=== PATIENT | female | born 1950 | race Caucasian/White ===

== ENCOUNTER 2017-04-02 04:55 | Emergency (ER) | payer MEDICAID ==
[~2017-04-02] VITALS: Ht 170.2 cm; Wt 137.8 kg
[~2017-04-02 04:55] MED LIST: CIPR-212 PO; IBUP-1547 PO; METR500T PO; ONDA4TAB7 PO; OXYC1TAB8 PO; VITAMIN POWDER PO
[2017-04-02 05:00] VITALS: Ht 170.2 cm; Wt 137.8 kg
[2017-04-02] MEDS ORDERED: KETOROLAC 30mg/ml INJECTION IV ONE (05:00)
[2017-04-02] MEDS ORDERED: NORMAL SALINE 1,000 ML IV ONE (05:00)
[2017-04-02] MEDS ORDERED: METOCLOPRAMIDE 10mg/2ml INJECTION IV ONE (05:00)
[2017-04-02] MEDS ORDERED: MORPHINE SULFATE 4 MG SYRINGE IV ONE (05:00)
--- OUTSIDE RECORDS SUMMARY | 2017-04-02 05:00 | XMS REPORT ---
Author Fabiola Freeman [facility] eClinicalWorks Address Unknown Phone Unavailable Care Team Providers Care Equipment Mechanic Specialist Name Role Phone Fabiola Ortega CP Unavailable Allergies No Known Allergies Problems No Known Problems Medications No Known Medications Results No Known Results Summary Purpose eClinicalWorks Submission
--- OUTSIDE RECORDS SUMMARY | 2017-04-02 05:00 | XMS REPORT ---
Author Fabiola Freeman [facility] eClinicalWorks Address Unknown Phone Unavailable Care Team Providers Care Engine House Helper Name Role Phone Fabiola Ortega CP Unavailable Allergies No Known Allergies Problems No Known Problems Medications No Known Medications Results No Known Results Summary Purpose eClinicalWorks Submission
--- OUTSIDE RECORDS SUMMARY | 2017-04-02 05:00 | XMS REPORT | Continuity of Care Document ---
Author Author [facility] Organization [facility] Address Unknown Phone Unavailable Allergies Active Description Code Type Severity Reaction Onset Reported/Identified Relationship to Patient Clinical Status Yes Latex Drug Allergy Eczema (rash) 12/10/2011 Yes Penicillins Drug Allergy Adverse Reaction 12/10/2011 Yes Toradol Drug Allergy Adverse Reaction 12/10/2011 Yes No Known Food Allergies Food Allergy 12/19/2011 Medications Problems Procedures Results Encounters ACCT No. Visit Date/Time Discharge Status Pt. Type Provider Facility Loc./Unit Complaint [id number] 02/16/2013 11:39:00 2012 23:59:59 CLS Outpatient Wade Flores DO [facility] on [facility]
--- OUTSIDE RECORDS SUMMARY | 2017-04-02 05:00 | XMS REPORT ---
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
--- NOTE | 2017-04-02 05:10 | NUR ---
bathroom. pt is brought back to rm 2. pt reports she needs to urinate. pt assisted with w/c to bathroom. pt uses 2 canes to slowly transfer. ua collected and sent to lab
--- OUTSIDE RECORDS SUMMARY | 2017-04-02 05:12 | XMS REPORT | Continuity of Care Document ---
Author Author [facility] Organization [facility] Address Unknown Phone Unavailable Allergies Active Description [...] Status Pt. Type Provider Facility Loc./Unit Complaint [id number] 02/16/2013 11:39:00 2012 23:59:59 CLS Outpatient Wade Flores DO [facility] on [facility]
--- NOTE | 2017-04-02 05:20 | NUR ---
provider dr hsu in room to see pt
--- NOTE | 2017-04-02 05:28 | ERPDOC ---
Departure Disposition Decision Date: April 02, 2017 Disposition Decision Time: 07:44 () Disposition: 01 DISCHARGED HOME, SELF-CARE Impression Impression (DASIA NGO MD) Impression: Primary Impression: Ureterolithiasis Severity: Severe () Condition: Improved Seen By: Physician only () Referrals: TOÑO HUA MD (Family) 1 Week Patient Instructions: Kidney Stones (ED) Problems/Meds/Labs Reviewed?: Yes Medications reviewed and manag: Yes () Additional Instructions: You may have passed a kidney stone. Drink lots of water and use naproxen or ibuprofen to help with your pain. Follow up with your doctor in the next week to ensure that you have passed the stone. Follow up care ordered?: Yes Mental Status: Alert, Oriented () HPI - Abdominal Pain General Stated Complaint: POSS KIDNEY STONES Time Seen by Provider: 05:00 Source: patient, family History/Exam Limitations: no limitations (DASIA NGO MD) Time Seen by Provider: 06:06 () HPI - Abdominal Pain Initial Comments Patient presents with 24 hours of right lower quadrant abdominal pain with radiation into the right flank. These the same symptoms that the patient has been seen for multiple times in the past, and she believes that she has another kidney stone. When asked, patient admits she has not had a known kidney stone for over 37 years, and has had the same symptoms with diverticulitis at least 4 times. Patient has not taken any medications for this, because she did not want mask her symptoms, and she wanted us to see just how sick she really is this morning Occurred At: home Onset: Rapid Duration: 12-24 hrs Quality: sharpness, stabbing Location: RLQ Radiation: flank Associated Symptoms: nausea/vomiting, DENIES: back pain, chest pain, diaphoresis, fatigue, headache, heartburn, rash, shortness of breath, swelling/ mass in abdomen, syncope, weakness Hx of Similar Symptoms: Yes (DASIA NGO MD) Allergies: Coded Allergies: Penicillins (Verified Allergy, Unknown, RASH/SWELLING, 04/02/17) ketorolac tromethamine (Unverified Adverse Reaction, Unknown, RENAL FAILURE, 04/02/17) ABLE TO TAKE IBUPROFEN latex (Unverified Adverse Reaction, Unknown, RASH, 04/02/17) Past History Patient Medical History Problem List Updates: Diverticulitis (DASIA NGO MD) Past Medical History Metabolic: cancer, hypertension GI: other Female: UTI, kidney stones (DASIA NGO MD) Surgical History General: appendix, gallbladder, hernia, other (DASIA NGO MD) Family History Family PMH: FOUND: CAD, cancer (DASIA NGO MD) Vaccines Hx Influenza Vaccination: No (DASIA NGO MD) Review of Systems Constitutional Constitutional: DENIES: appetite decrease, appetite increase, chills, dizziness , fever, weakness (DASIA NGO MD) ENMT Ears: DENIES: pain Hearing: DENIES: hearing loss, tinnitus Balance: DENIES: vertigo Mouth/Throat: DENIES: change in swallowing, change in voice, hoarsness, painful swallowing, sore throat (DASIA NGO MD) Cardiovascular Cardiac: DENIES: chest pain, dyspnea on exertion Rhythm/Rate: DENIES: irregular beat, palpitations, tachycardia Vascular: DENIES: pedal edema (DASIA NGO MD) Pulmonary Respiratory: DENIES: cough, dyspnea, pleuritic chest pain (DASIA NGO MD) GI Upper Abdomen: nausea, pain, DENIES: dysphagia, food intolerances, heartburn/ indigestion, hematemesis, vomiting Lower Abdomen: DENIES: blood in stool, flori-colored stools, constipation, diarrhea, melena, pain, painful BM (DASIA NGO MD) General: DENIES: burning, dysuria, frequency, pain, urgency (DASIA NGO MD) Musculoskeletal General: DENIES: cramps, joint pain, joint swelling, pain, weakness (DASIA NGO MD) Integumentary Skin: DENIES: rash, sores (DASIA NGO MD) Neurological General: DENIES: headache, numbness, tingling, vertigo, weakness (DASIA NGO MD) Psychiatric Psychiatric: DENIES: anxiety, depression, nervousness (DASIA NGO MD) Physical Exam General General Nourishment: well nourished, well developed, appears stated age, obese General Body Habitus: well groomed (DASIA NGO MD) Vitals and Pain First Documented Vital Signs Date Time Temp Pulse Resp B/P Pulse Ox O2 Delivery O2 Flow Rate FiO2 04/02/17 05:00 97.7 75 20 156/97 98 Room Air 04/02/17 06:00 2.00 (MARCH,JACOB M DO) Vitals and Pain Weight: Kilograms: Height (feet): 5 Height (inches): 6 Triage Pain Scale: (DASIA NGO MD) RN VS reviewed by Provider: Yes (DASIA NGO MD) Normal Exams: Head: Normocephalic w/o trauma Eyes: Pupils are PERRLA w/ EOMI, No scleral icterus, irritation, or foreign bodies noted ENMT: No facial trauma, nasal exudates, pharyngeal erythema, or exudates are noted Neck: Full range of motion, without adenopathy, JVD, bruits or thyromegaly Chest/Resp: Clear all baker, with good airflow, and symmetry bilaterally CV: Regular rate and rhythm, without murmur or gallop, Pulses 2+ all extremities, capillary refill, <2 seconds all ext., no pedal edema noted Lymphatic: No lymphadenopathy, or lymphedema noted Musculoskeletal: No tenderness, or deformity noted, good range of motion, all extremities Integumentary: No rashes, hives, or bruising noted, hair and nails, without abnormality Neurologic: Patient is alert, and oriented, cranial nerves, motor/sensory/ cerebellar, exams w/o gross deficits, to observation Psychiatric: Patient exhibits, appropriate attention, emotion and affect (DASIA NGO MD) Abdomen (brief) Abdominal Brief: FOUND: bowel normo active x4, soft, tender (right lower quadrant abdominal pain with guarding, rebounding, and mild referred tenderness to the right flank), NOT FOUND: distended, hepatosplenomegaly (DASIA NGO MD ) Progress Results/Orders Orders Procedure Category Date Status Time Iv Lock (Ed Only) EDM 04/02/17 Transmitted 05:00 Cbc W/Auto LAB 04/02/17 Complete Diff-Reflex Manual Cmp - Comprehensive LAB 04/02/17 Complete Metabolic Lipase LAB 04/02/17 Complete Metoclopramide PHA 04/02/17 Complete (Reglan Inj) 05:00 Morphine Sulfate PHA 04/02/17 Complete (Morphine) 05:00 Normal Saline (Normal PHA 04/02/17 Complete Saline Iv) 05:00 Ct Abd/Pelvis CT 04/02/17 Resulted W/Contrast Only UA, LAB 04/02/17 Complete Dip&Micro(Complete) & 05:19 Iohexol (Omnipaque) PHA 04/02/17 Complete 06:25 Normal Saline (Ns) PHA 04/02/17 Complete 06:25 Saline Flush (Iv PHA 04/02/17 Complete Flush) 06:25 Ibuprofen (Motrin) PHA 04/02/17 Complete 06:45 Dicyclomine Inj PHA 04/02/17 Complete (Bentyl) 06:45 Urine Culture DENNY 04/02/17 In Process 06:44 (MARCH,[facility]) Lab Results Laboratory Tests Test 04/02/17 05:19 04/02/17 05:53 Urine Collection Type Cleancatch-midstream Urine Color Yellow Urine Turbidity Cloudy Urine pH 5.5 Urine Specific Spring 1.020 Urine Protein 2+ Urine Glucose (UA) Negative Urine Ketones Negative Urine Blood 3+ Urine Nitrite Positive Urine Bilirubin Negative Urine Urobilinogen 0.2EU/DL Urine Leukocyte Esterase 3+ Urine RBC 1-3/HPF Urine WBC Tntc/HPF Urine WBC Clumps Few Urine Squamous Epithelial Cells 0-5 Urine Bacteria 1+ Urine Mucus Present Urine Culture Indicated Cult reflexed &setup White Blood Count 10.0T/MM3 Red Blood Count 5.26M/MM3 Hemoglobin 13.9GM/DL Hematocrit 44.9% Mean Corpuscular Volume 85.4UM3 Mean Corpuscular Hemoglobin 26.4UUG Mean Corpuscular Hemoglobin Concent 31.0GM/DL RDW Standard Deviation 49.3FL Platelet Count 254T/MM3 Mean Platelet Volume 9.9UM3 Immature Granulocyte % (Auto) 0.2% Neutrophils (%) (Auto) 64.6% Lymphocytes (%) (Auto) 23.2% Monocytes (%) (Auto) 8.9% Eosinophils (%) (Auto) 2.6% Basophils (%) (Auto) 0.5% Absolute Immature Granulocyte (auto 0.02T/MM3 Absolute Neutrophils (auto) 6.5T/MM3 Absolute Lymphocytes (auto) 2.3T/MM3 Absolute Monocytes (auto) 0.9T/MM3 Absolute Eosinophils (auto) 0.3T/MM3 Absolute Basophils (auto) 0.1T/MM3 Turbidity < 20 Sodium Level 143MEQ/L Potassium Level 4.0MEQ/L Chloride Level 105MEQ/L Carbon Dioxide Level 25MEQ/L Anion Gap 13MEQ/L Blood Urea Nitrogen 27.0MG/DL Creatinine 0.9MG/DL Glomerular Filtration Rate Calc 62 BUN/Creatinine Ratio 30RATIO Glucose Level 113MG/DL Calculated Osmolality 281MOSM/KG Calcium Level 9.8MG/DL Total Bilirubin 0.60MG/DL Icterus Index < 2 Aspartate Amino Transf (AST/SGOT) 22U/L Alanine Aminotransferase (ALT/SGPT) 45U/L Alkaline Phosphatase 104U/L Total Protein 7.7G/DL Albumin 4.4G/DL Globulin 3.3G/DL Albumin/Globulin Ratio 1.3RATIO Lipase 175U/L Chemistry Specimen Hemolysis < 15 ( DO) Medications Current ED Medications Ketorolac Tromethamine (Toradol) 30 mg O ONCE IV ; Start 04/02/17 at 05:00; Stop 04/02/17 at 05:01; Status Cancel Metoclopramide HCl (REGLAN Inj) 10 mg O ONCE IV Last administered on 05:43; Start 04/02/17 at 05:00; Stop 04/02/17 at 05:23; Status DC Morphine Sulfate 4 mg 4 mg O ONCE IV Last administered on 04/02/17 05:47; Start 04/02/17 at 05:00; Stop 04/02/17 at 05:23; Status DC Sodium Chloride (Normal Saline IV) 1,000 ml @ 0 mls/hr Q0M ONCE IV Last administered on 04/02/17 05:42; Start 04/02/17 at 05:00; Stop 04/02/17 at 05:23 ; Status DC Iohexol 1 bottle 1 bottle STK-MED ONCE .ROUTE ; Start 04/02/17 at 06:25; Stop at 06:26; Status DC Sodium Chloride (NS) 100 ml @ As Directed STK-MED ONCE .ROUTE ; Start 04/02/17 at 06:25; Stop 04/02/17 at 06:26; Status DC Sodium Chloride (Iv Flush) 10 ml STK-MED ONCE .ROUTE ; Start 04/02/17 at 06:25; Stop 04/02/17 at 06:26; Status DC Ibuprofen (Motrin) 800 mg O ONCE PO ; Start 04/02/17 at 06:45; Stop 04/02/17 at 06:46; Status DC Dicyclomine HCl (Bentyl) 10 mg O ONCE IM Last administered on 04/02/17t 07:23 ; Start 04/02/17 at 06:45; Stop 04/02/17 at 06:46; Status DC (MARCH,JACOB Wick DO) Progress Progress Patient given Toradol, Reglan, and morphine with 1 L normal saline IV fluid bolus - Lab and CT abdomen pelvis pending - (DASIA NGO MD) Progress Pt vomited just prior to abd/pelv CT. Pain has been tolerable since. Possible recently passed stone per Rad read. Discussed dx, prognosis, tx, and need for f/ u with Pt. Pt voiced understanding. (MARCH,JACOB Wick ) CT CT : CT: Abd/Pelvis IV contrast Interpretation: Abnormal (1. Mild distension of right collecting system; no stone. 2. Distended endometrial canal - unchanged from prior.) (MARCH,JACOB Wick DO) DASIA NGO MD April 02, 2017 05:28 MARCHJACOB DO April 02, 2017 07:45 MARCHJACOB DO April 02, 2017 07:45
--- NOTE | 2017-04-02 06:03 | NUR ---
REPORT REPORT RECEIVED FROM LISE DELONG AT THIS TIME.
[2017-04-02 06:05] LABS: BASOPHILS # (AUTO) 0.1 T/MM3 (0-0.2); BASOPHILS % (AUTO) 0.5 % (0-2); EOSINOPHILS # (AUTO) 0.3 T/MM3 (0-0.5); EOSINOPHILS % (AUTO) 2.6 % (0-4); HCT - HEMATOCRIT 44.9 % (36-46); HGB - HEMOGLOBIN 13.9 GM/DL (12-16); IMMATURE GRANULOCYTE # (AUTO) 0.02 T/MM3 (0.00-0.03); IMMATURE GRANULOCYTE % (AUTO) 0.2 % (0.0-0.5); LYMPHOCYTES # (AUTO) 2.3 T/MM3 (1-4.8); LYMPHOCYTES % (AUTO) 23.2 % (23-45); MEAN CORPUSCULAR HGB 26.4 UUG (26-34); MEAN CORPUSCULAR VOLUME 85.4 UM3 (80-100); MEAN PLATELET VOLUME 9.9 UM3 (9.4-12.4); MONOCYTES # (AUTO) 0.9 T/MM3 (0-0.8); MONOCYTES % (AUTO) 8.9 % (0-9.0); NEUTROPHILS #(AUTO)-ABSOLUTE 6.5 T/MM3 (1.8-7.7); NEUTROPHILS % (AUTO) 64.6 % (33-66); RED BLOOD COUNT 5.26 M/MM3 (4.00-5.20)
[2017-04-02 06:15] LABS: ALBUMIN 4.4 G/DL (3.5-5.0); ALBUMIN/GLOBULIN RATIO 1.3 RATIO (1.1-2.2); ALKALINE PHOSPHATASE 104 U/L (38-126); ALT (SGPT) 45 U/L (9-52); ANION GAP 13 MEQ/L (5-15); AST (SGOT) 22 U/L (14-36); BUN/CREATININE RATIO 30 RATIO (6-26); CALCIUM 9.8 MG/DL (8.4-10.2); CHLORIDE 105 MEQ/L (98-107); CO2 - CARBON DIOXIDE 25 MEQ/L (22-30); CREATININE 0.9 MG/DL (0.7-1.2); GLOMERULAR FILTRATION RATE 62; GLUCOSE 113 MG/DL (65-110); LIPASE 175 U/L (23-300); SODIUM 143 MEQ/L (134-144); TOTAL PROTEIN 7.7 G/DL (6.3-8.2)
[2017-04-02 06:18] LABS: BLOOD, URINE 3+ (NEGATIVE); COLOR,URINE YELLOW (YELLOW); LEUKOCYTE ESTERASE ,URINE 3+ (NEGATIVE); NITRITE,URINE POSITIVE (NEGATIVE); UROBILINOGEN,URINE 0.2 EU/DL (NORMAL)
[2017-04-02] MEDS ORDERED: SALINE FLUSH 10ml SYRINGE ONE (06:25)
[2017-04-02] MEDS ORDERED: NORMAL SALINE 100 ML ONE (06:25)
[2017-04-02] MEDS ORDERED: IOHEXOL 300 MG/ML 100ml INJECTION ONE (06:25)
--- NOTE | 2017-04-02 06:30 | NUR ---
IMAGING PT TO IMAGING AT THIS TIME. Addendum: 04/02/17 at 0725 by [email or web address] PT TO IMAGING AT LATER TIME - [id number]
[2017-04-02 06:36] LABS: SQUAMOUS EPITHELIAL CELL,UR 0-5; WBC CLUMPS,URINE FEW; WBC,URINE TNTC /HPF (0-5)
[2017-04-02 06:40] LABS: BACTERIA,URINE 1+ (NEGATIVE)
--- NOTE | 2017-04-02 06:40 | NUR ---
IMAGING PT TO IMAGING VIA WHEEL CHAIR AT THIS TIME.
[2017-04-02 06:44] LABS: MUCUS,URINE PRESENT
[2017-04-02] MEDS ORDERED: DICYCLOMINE IM ONE (06:45)
[2017-04-02] MEDS ORDERED: IBUPROFEN 800 MG TABLET PO ONE (06:45)
--- NOTE | 2017-04-02 06:58 | NUR ---
IMAGING PT RETURN FROM IMAGING VIA WHEEL CHAIR AT THIS TIME.
--- NOTE | 2017-04-02 06:58 | NUR ---
WHEEL CHAIR PT WOULD LIKE TO REMAIN IN WHEEL CHAIR AT THIS TIME - STATING COMFORT REASONS.
[2017-04-02] MEDS ORDERED: NO ROUTINE MEDS (07:07)
--- NOTE | 2017-04-02 07:54 | DI ---
Indication: ITS.REASON: RLQ pain PROCEDURE: CT ABD/PELVIS W/CONTRAST ONLY: Encounter: Initial Comparison: 07/24/2015 Technique: Axial CT images were performed through the abdomen and pelvis after the administration of intravenous contrast. Coronal and sagittal two-dimensional reformats. Automated Exposure Control and Iterative Reconstruction dose reducing techniques were utilized. Contrast: Omnipaque 300 100 mL Findings: The lung bases are clear. The liver is grossly normal. Gallbladder is surgically absent. The spleen, pancreas and adrenal glands are within normal limits. Left kidney appears normal. Right kidney shows inflammatory change in the region of the extrarenal pelvis with urothelial thickening, new from the prior study. No obvious stone disease. Bladder is normal. Fluid in the endometrial canal, similar to the prior study. No free fluid. Sigmoid diverticulosis without evidence of acute diverticulitis. Prior right hemicolectomy. No evidence of a small bowel obstruction. Rectus diastases. Bone windows show degenerative change and scoliosis in the spine. Impression: Right-sided urothelial thickening and inflammation could be due to infection or recently passed stone. There is a preliminary report by [employer] radiologic. .
[2017-04-02 07:57] VITALS: BP 148/82; PULSE 86; RESP 20; TEMP 97.7; O2SAT 97
--- NOTE | 2017-04-02 07:57 | NUR ---
DEPART PT GIVEN DI FOR KIDNEY STONES AND F/U. PT VERBALIZES UNDERSTANDING OF DI. QUESTIONS ASKED/ANSWERED - DENIES FURTHER QUESTIONS/NEEDS AT THIS TIME. IV SITE REMOVED. PERSONAL BELONGINGS GATHERED. PT ESCORTED TO ED EXIT VIA WHEEL CHAIR WHERE SPOUSE MET WITH PRIVATE VEHICLE. NO SIGN OF DISTRESS AT THIS TIME.
== END 2017-04-02 07:57 | disposition home or self-care (01) ==
LOC: ED 04:55
DX: N20.1 Calculus of ureter (principal); Z87.442 Personal history of urinary calculi
CPT/HCPCS: 74177; 80053; 81001; 83690; 85025; 87086; 96361; 96372; 96374; 96375; 99284; J0500; J2765; J7030; J7050; Q9967; 87088

== ENCOUNTER 2017-04-06 20:30 | Emergency (ER) | payer MEDICAID ==
[~2017-04-06] VITALS: Ht 170.2 cm; Wt 137.7 kg
[~2017-04-06 20:30] MED LIST changes: -CIPR-212 PO; -METR500T PO; +NO ROUTINE MEDS; -ONDA4TAB7 PO; -OXYC1TAB8 PO
--- OUTSIDE RECORDS SUMMARY | 2017-04-06 20:35 | XMS REPORT | Continuity of Care Document ---
Author Author [facility] Organization [facility] Address Unknown Phone Unavailable Allergies Active [...] Status Pt. Type Provider Facility Loc./Unit Complaint [id number] 02/16/2013 11:39:00 2012 23:59:59 CLS Outpatient Wade Flores DO [facility] on [facility]
--- OUTSIDE RECORDS SUMMARY | 2017-04-06 20:35 | XMS REPORT | Continuity of Care Document ---
Author Author [facility] Organization [facility] Address Unknown Phone Unavailable Support Name Relationship Address Phone MARCH, JACOB Wick DO Caregiver [address] [place] [address] Unavailable TOÑO HUA MD Caregiver [address] [place] [address] Unavailable CHRISTIANO [place] [address] Insurance Providers Guarantor Gina Lester Address [address] [place] [address] Email [email or web address] [email or web address] Community Plan Policy Number [id number] Subscriber's Name Gina Lester Relationship 18 Self Effective Date 17 Expiration Date 17 Chief Complaint and Reason for Visit Chief Complaint Flank Pain Reason for Visit [id number] Problems Active Problems Medical Problem Onset Date Status Diverticulitis Unknown Acute Diverticulitis Unknown Acute Past Problems Medical Problem Onset Date Ureterolithiasis Unknown Medications Current Home Medications Medication Dose Units Route Directions Days Qty Instructions Start Date Ibuprofen 800 Mg Tablet 1 Tab Oral Three Times A Day as needed for Pain 07/24/15 No Routine Meds 04/02/17 Vitamin Powder 1 Packet Oral Daily 03/01/16 Past Home Medications Medication Directions Ordered Status "A Few Other Herbs" , 02/05/10 Discontinued Cayenne Pepper , 02/05/10 Discontinued Oxycodone Hcl/Acetaminophen (Percocet 5-325 Mg Tablet) 1 Each Tablet, 1-2 Tab Oral Every 6 Hours as needed for Pain 03/01/16 Discontinued Oxycodone Hcl/Acetaminophen (Percocet 7.5/325 Mg) 1 Udtab Tablet, 1 Udtab Oral As Needed 01/02/12 Discontinued Social History Social History Problem Response Recorded Date/Time Onset Date Status Hx Alcohol Use No 04/02/2017 7:02am Not Applicable Not Applicable Tobacco Usage none 04/27/2015 12:29pm Not Applicable Not Applicable Query Response Start Date Stop Date Smoking Status Never smoker Hospital Discharge Instructions No hospital discharge instructions. Plan of Care Discharge Date 04/02/17 7:57am Disposition 01 DISCHARGED HOME, SELF-CARE Condition at Discharge Improved Instructions/Education Provided Kidney Stones (ED) Prescriptions See Medication Section Referrals TOÑO HUA MD Order Date: 1 Week Address: [address] [place] [id number] Note: Additional Instructions/Education You may have passed a kidney stone. Drink lots of water and use naproxen or ibuprofen to help with your pain. Follow up with your doctor in the next week to ensure that you have passed the stone. Care Plan and Goals Physician Care Plan Problem: Ureterolithiasis Goal: Follow up with primary care provider Instructions: Take medications and follow care plan as discussed/written Functional Status No functional status results. Allergies, Adverse Reactions, Alerts Allergen Type Severity Reaction Status Last Updated ketorolac tromethamine Adverse Reaction Unknown RENAL FAILURE Active 04/02 Penicillin Allergy Unknown RASH/SWELLING Active 04/02/17 Latex Adverse Reaction Unknown RASH Active 04/02/17 Immunizations Query Response on File Recorded Date/Time Hx Influenza Vaccination No 07/24/15 3:05pm Hx Influenza Vaccination No 07/24/15 3:05pm Influenza Vaccine Hx NONE 04/02/17 7:02am Vital Signs Acute Vital Signs Vital Response Date/Time Temperature (Fahrenheit) 97.7 deg F (96.8 - 99.1) 04/02/2017 7:57am Temperature (Calculated Celsius) 36.73322 degrees C (36.0 - 37.3) 04/02/2017 7:57am Pulse Rate (adult) 86 bpm (60 - 100) 04/02/2017 7:57am Respiratory Rate 20 breaths/min (10 - 20) 04/02/2017 7:57am O2 Sat by Pulse Oximetry 97 % (90 - 100) 04/02/2017 7:57am Oxygen Flow Rate 2.00 L/min 04/02/2017 7:57am Blood Pressure 148/82 mm Hg 04/02/2017 7:57am Height (Feet) 5 feet 04/02/2017 5:00am Height (Inches) 7.00 inches 04/02/2017 5:00am Weight (Kilograms) 137.800 kg 04/02/2017 5:00am Body Mass Index (BMI) 47.0 04/02/2017 5:00am Results Laboratory Results Test Name Result Units Flags Reference Collection Date/Time Result Date/ Time Comments White Blood Count 10.0 T/MM3 4.5-11.0 04/02/2017 5:53am 04/02/2017 6: 05am Red Blood Count 5.26 M/MM3 H 4.00-5.20 04/02/2017 5:53am 04/02/2017 6: 05am Hemoglobin 13.9 GM/DL 12-16 04/02/2017 5:53am 04/02/2017 6:05am Hematocrit 44.9 % 36-46 04/02/2017 5:53am 04/02/2017 6:05am Mean Corpuscular Volume 85.4 UM3 80-100 04/02/2017 5:53am 04/02/2017 6: 05am Mean Corpuscular Hemoglobin 26.4 UUG 26-34 04/02/2017 5:532016 6:05am Mean Corpuscular Hemoglobin Concent 31.0 GM/DL 31-37 04/02/2017 5:53am 04/02/2017 6:05am RDW Standard Deviation 49.3 FL 36.9-50.2 04/02/2017 5:53am 04/02/2017 6 :05am Platelet Count 254 T/MM3 130-400 04/02/2017 5:53am 04/02/2017 6:05am Mean Platelet Volume 9.9 UM3 9.4-12.4 04/02/2017 5:5304/02/2017 6: 05am Neutrophils (%) (Auto) 64.6 % 33-66 04/02/2017 5:53am 04/02/2017 6: 05am Lymphocytes (%) (Auto) 23.2 % 23-45 04/02/2017 5:53am 04/02/2017 6: 05am Monocytes (%) (Auto) 8.9 % 0-9.0 04/02/2017 5:53am 04/02/2017 6:05am Eosinophils (%) (Auto) 2.6 % 0-4 04/02/2017 5:53am 04/02/2017 6:05am Basophils (%) (Auto) 0.5 % 0-2 04/02/2017 5:5304/02/2017 6:05am Immature Granulocyte % (Auto) 0.2 % 0.0-0.5 04/02/2017 5:532016 6:05am Absolute Neutrophils (auto) 6.5 T/MM3 1.8-7.7 04/02/2017 5:532016 6:05am Absolute Lymphocytes (auto) 2.3 T/MM3 1-4.8 04/02/2017 5:532016 6:05am Absolute Monocytes (auto) 0.9 T/MM3 H 0-0.8 04/02/2017 5:532016 6:05am Absolute Eosinophils (auto) 0.3 T/MM3 0-0.5 04/02/2017 5:532016 6:05am Absolute Basophils (auto) 0.1 T/MM3 0-0.2 04/02/2017 5:5304/02/2017 6:05am Absolute Immature Granulocyte (auto 0.02 T/MM3 0.00-0.03 04/02/2017 5: 5304/02/2017 6:05am Icterus Index < 2 0-7 04/02/2017 5:5304/02/2017 6:15am Chemistry Specimen Hemolysis < 15 0-25 04/02/2017 5:5304/02/2017 6 :15am 0-25: Specimen Exhibited No Hemolysis. Turbidity < 20 0-20 04/02/2017 5:5304/02/2017 6:15am Sodium Level 143 MEQ/L 134-144 04/02/2017 5:5304/02/2017 6:15am Potassium Level 4.0 MEQ/L 3.6-5 04/02/2017 5:5304/02/2017 6:15am Chloride Level 105 MEQ/L 98-107 04/02/2017 5:5304/02/2017 6:15am Carbon Dioxide Level 25 MEQ/L 22-30 04/02/2017 5:53am 04/02/2017 6: 15am Anion Gap 13 MEQ/L 5-15 04/02/2017 5:5304/02/2017 6:15am Blood Urea Nitrogen 27.0 MG/DL H 7-17 04/02/2017 5:5304/02/2017 6: 15am Creatinine 0.9 MG/DL 0.7-1.2 04/02/2017 5:5304/02/2017 6:15am BUN/Creatinine Ratio 30 RATIO H 6-26 04/02/2017 5:5304/02/2017 6: 15am Glomerular Filtration Rate Calc 62 04/02/2017 5:5304/02/2017 6: 15am Glucose Level 113 MG/DL H 65-110 04/02/2017 5:5304/02/2017 6:15am Calculated Osmolality 281 MOSM/KG H 261-280 04/02/2017 5:532016 6:15am Calcium Level 9.8 MG/DL 8.4-10.2 04/02/2017 5:5304/02/2017 6:15am Total Bilirubin 0.60 MG/DL 0.20-1.30 04/02/2017 5:5304/02/2017 6: 15am Alkaline Phosphatase 104 U/L 38-126 04/02/2017 5:5304/02/2017 6: 15am Total Protein 7.7 G/DL 6.3-8.2 04/02/2017 5:5304/02/2017 6:15am Albumin 4.4 G/DL 3.5-5.0 04/02/2017 5:5304/02/2017 6:15am Globulin 3.3 G/DL 2.4-3.6 04/02/2017 5:5304/02/2017 6:15am Albumin/Globulin Ratio 1.3 RATIO 1.1-2.2 04/02/2017 5:5304/02/2017 6 :15am Aspartate Amino Transf (AST/SGOT) 22 U/L 14-36 04/02/2017 5:532016 6:15am Alanine Aminotransferase (ALT/SGPT) 45 U/L 9-52 04/02/2017 5:5304/02 6:15am Lipase 175 U/L 23-300 04/02/2017 5:5304/02/2017 6:15am Urine Collection Type CLEANCATCH-MIDSTREAM 04/02/2017 5:192016 6:18am Urine Color YELLOW YELLOW 04/02/2017 5:04/02/2017 6:18am Urine Turbidity CLOUDY CLEAR 04/02/2017 5:04/02/2017 6:18am Urine Specific [place] 1.020 1.015-1.025 04/02/2017 5:2016 6:18am Urine pH 5.5 5.0-8.0 04/02/2017 5:04/02/2017 6:18am Urine Leukocyte Esterase 3+ A NEGATIVE 04/02/2017 5:04/02/2017 6: 18am Urine Nitrite POSITIVE A NEGATIVE 04/02/2017 5:04/02/2017 6:18am Urine Protein 2+ A NEGATIVE 04/02/2017 5:04/02/2017 6:18am Urine Glucose (UA) NEGATIVE NEGATIVE 04/02/2017 5:04/02/2017 6: 18am Urine Ketones NEGATIVE NEGATIVE 04/02/2017 5:04/02/2017 6:18am Urine Urobilinogen 0.2 EU/DL NORMAL 04/02/2017 5:04/02/2017 6: 18am Urine Bilirubin NEGATIVE NEGATIVE 04/02/2017 5:04/02/2017 6: 18am Urine Blood 3+ A NEGATIVE 04/02/2017 5:04/02/2017 6:18am Urine WBC TNTC /HPF H 0-5 04/02/2017 5:04/02/2017 6:44am Urine WBC Clumps FEW 04/02/2017 5:04/02/2017 6:44am Urine RBC 1-3 /HPF 0-3 04/02/2017 5:04/02/2017 6:44am Urine Squamous Epithelial Cells 0-5 04/02/2017 5:04/02/2017 6: 44am Urine Bacteria 1+ H NEGATIVE 04/02/2017 5:04/02/2017 6:44am Urine Mucus PRESENT 04/02/2017 5:04/02/2017 6:44am Urine Culture Indicated CULT REFLEXED &SETUP 04/02/2017 5: 6:44am Microbiology Results Procedure Source Organism/Result Collection Date/Time Result Date/Time Result Status Urine Culture Urine, Clean Catch-Midstream CULTURE INITIATED - RESULTS PENDING 04/02/2017 6:44am 04/02/2017 6:45am Preliminary Name: GINA LESTER Unit #: [id number] : 1950 Sex: F Admit Date: Loc / Svc: ED Discharge Date: DIAGNOSTIC IMAGING [facility]PORT [id number].REASON: RLQ pain PROCEDURE: CT ABD/PELVIS W/CONTRAST ONLY: Encounter: Initial Comparison: 07/24/2015 Technique: Axial CT images were performed through the abdomen and pelvis after the administration of intravenous contrast. Coronal and sagittal two-dimensional reformats. Automated Exposure Control and Iterative Reconstruction dose reducing techniques were utilized. Contrast: Omnipaque 300 100 mL Findings: The lung bases are clear. The liver is grossly normal. Gallbladder is surgically absent. The spleen, pancreas and adrenal glands are within normal limits. Left kidney appears normal. Right kidney shows inflammatory change in the region of the extrarenal pelvis with urothelial thickening, new from the prior study. No obvious stone disease. Bladder is normal. Fluid in the endometrial canal, similar to the prior study. No free fluid. Sigmoid diverticulosis without evidence of acute diverticulitis. Prior right hemicolectomy. No evidence of a small bowel obstruction. Rectus diastases. Bone windows show degenerative change and scoliosis in the spine. Impression: Right-sided urothelial thickening and inflammation could be due to infection or recently passed stone. There is a preliminary report by [employer]. . Procedures No known history of procedures. Encounters Encounter Location Arrival/Admit Date Discharge/Depart Date Attending Provider Departed Emergency Room [facility] 04/02/17 4:55am 04/02/17 7: 57am JACOB LUQUE DO Recent Diagnosis
--- NOTE | 2017-04-06 20:45 | NUR ---
STATUS PT IS SEATED IN WHEELCHAIR AT REGISTRATION DESK WITH HER LAUGHING AND JOKING WITH REGISTRATION STAFF. NO S/S OF ACUTE DISTRESS NOTED AT THIS TIME.
[2017-04-06 21:20] VITALS: Ht 170.2 cm; Wt 137.7 kg
[2017-04-06] MEDS ORDERED: CEFTRIAXONE 1 GRAM INJECTION IM ONE (21:30)
[2017-04-06] MEDS ORDERED: HYDROMORPHONE 2mg/ml INJECTION IM ONE (21:30)
--- NOTE | 2017-04-06 21:36 | ERPDOC ---
Departure Disposition Decision Date: April 06, 2017 Disposition Decision Time: 21:35 Disposition: 01 DISCHARGED HOME, SELF-CARE Impression Impression Impression: Primary Impression: Urinary tract infection Urinary tract infection type: site unspecified Hematuria presence: without hematuria Qualified Codes: N39.0 - Urinary tract infection, site not specified Severity: Moderate Condition: Improved Seen By: Physician only Referrals: TOÑO HUA MD (Family) Patient Instructions: Urinary Tract Infection in Women (ED) Problems/Meds/Labs Reviewed?: Yes Medications reviewed and manag: Yes Additional Instructions: Keflex 500 mg, one tablet 3 times daily for 10 days Reglan 10 mg one every 6-8 hours as needed for nausea or cramps May use [id number] pain medication such as ibuprofen or Tylenol as needed See your doctor for recheck next week Follow up care ordered?: Yes Mental Status: Alert Scripts Metoclopramide HCl (Reglan) 10 Mg Tablet 10 MG PO QID Y for N/CRAMPS, #30 TAB 0 Refills Prov: DASIA NGO MD 04/06/17 Cephalexin (Keflex) 500 Mg Capsule 500 MG PO TID, #30 CAP Prov: DASIA NGO MD 04/06/17 HPI - Female General Stated Complaint: POSSIBLE KIDNEY STONES Time Seen by Provider: 20:34 Source: patient, family Exam Limitations: no limitations HPI - Female Initial Comments Patient presents with persistent right lower quadrant, pain with radiation into the right flank. Patient was seen several days ago, diagnosed with inflammation in the ureter consistent with a probable stone passage. Early later after the patient had left the ER, the patient's urine came back with obvious infection, the patient was not started on any antibiotics. Patient does have a history of frequent urinary tract infections and has used Cipro with no improvement in the past. Patient states that she does feel like she has urinary tract infection, and if we use anabolic she would prefer cephalosporin that she's had good results with that in the past. Occurred At: home Onset: Gradual Duration: 1 week Allergies: Coded Allergies: Penicillins (Verified Allergy, Unknown, RASH/SWELLING, 04/02/17) ketorolac tromethamine (Unverified Adverse Reaction, Unknown, RENAL FAILURE, 04/02/17) ABLE TO TAKE IBUPROFEN latex (Unverified Adverse Reaction, Unknown, RASH, 04/02/17) Past History Past Medical History Metabolic: cancer, hypertension GI: other Female: UTI, kidney stones Surgical History General: appendix, gallbladder, hernia, other Family History Family PMH: FOUND: CAD, cancer Vaccines Hx Influenza Vaccination: No Review of Systems Constitutional Constitutional: DENIES: appetite decrease, appetite increase, chills, dizziness , fever, weakness ENMT Ears: DENIES: pain Hearing: DENIES: hearing loss, tinnitus Balance: DENIES: vertigo Mouth/Throat: DENIES: change in swallowing, change in voice, hoarsness, painful swallowing, sore throat Cardiovascular Cardiac: DENIES: chest pain, dyspnea on exertion Rhythm/Rate: DENIES: irregular beat, palpitations, tachycardia Vascular: DENIES: pedal edema Pulmonary Respiratory: DENIES: cough, dyspnea, pleuritic chest pain GI Upper Abdomen: DENIES: dysphagia, heartburn/indigestion, nausea, pain, vomiting Lower Abdomen: pain, DENIES: blood in stool, constipation, diarrhea General: dysuria, frequency Musculoskeletal General: DENIES: cramps, joint pain, joint swelling, pain, weakness Integumentary Skin: DENIES: rash, sores Neurological General: DENIES: headache, numbness, tingling, vertigo, weakness Physical Exam General General Nourishment: well nourished, well developed, appears stated age, no acute distress, obese General Body Habitus: well groomed Vitals and Pain Weight: Kilograms: Height (feet): 5 Height (inches): 7.00 Triage Pain Scale: RN VS reviewed by Provider: Yes Normal Exams: Head: Normocephalic w/o trauma Eyes: Pupils are PERRLA w/ EOMI, No scleral icterus, irritation, or foreign bodies noted ENMT: No facial trauma, nasal exudates, pharyngeal erythema, or exudates are noted Neck: Full range of motion, without adenopathy, JVD, bruits or thyromegaly Chest/Resp: Clear all baker, with good airflow, and symmetry bilaterally CV: Regular rate and rhythm, without murmur or gallop, Pulses 2+ all extremities, capillary refill, <2 seconds all ext., no pedal edema noted Lymphatic: No lymphadenopathy, or lymphedema noted Musculoskeletal: No tenderness, or deformity noted, good range of motion, all extremities Integumentary: No rashes, hives, or bruising noted, hair and nails, without abnormality Neurologic: Patient is alert, and oriented, cranial nerves, motor/sensory/ cerebellar, exams w/o gross deficits, to observation Psychiatric: Patient exhibits, appropriate attention, emotion and affect Abdomen (brief) Abdominal Brief: FOUND: bowel normo active x4, soft, tender (mild suprapubic and right lower quadrant tenderness, no guarding no rebounding) Progress Results/Orders Orders Procedure Category Date Status Time Ceftriaxone (Rocephin) PHA 04/06/17 Complete 21:30 Hydromorphone PHA 04/06/17 Complete (Dilaudid) 21:30 Metoclopramide PHA 04/06/17 Complete (Reglan) 21:30 Medications Current ED Medications Ceftriaxone Sodium (Rocephin) 1 g O ONCE IM ; Start 04/06/17 at 21:30; Stop at 21:31 Hydromorphone HCl (Dilaudid) 1 mg O ONCE IM ; Start 04/06/17 at 21:30; Stop at 21:31 Metoclopramide HCl (Reglan) 10 mg O ONCE PO ; Start 04/06/17 at 21:30; Stop at 21:31 Progress Progress Microbiology from previous UA shows Escherichia coli with extensive sensitivities. Patient clearly has urinary tract infection from prior urinary studies. Patient is started on Rocephin 1 g IM in the ER with Dilaudid 1 mg for pain, and Reglan 10 mg orally for both nausea and antispasmodic effect. Patient is then sent with prescription for Keflex 500 mg 3 times daily for 10 days, Reglan 10 mg 3 times daily as needed for nausea/cramps, and is to use over -the-counter pain medications at home. DASIA NGO MD April 06, 2017 21:36
[2017-04-06] MEDS ORDERED: CEPH-583 PO (21:37)
[2017-04-06] MEDS ORDERED: METO-230 PO (21:37)
[2017-04-06 22:00] VITALS: RESP 16; TEMP 98.8
--- OUTSIDE RECORDS SUMMARY | 2017-04-06 22:04 | XMS REPORT | Continuity of Care Document ---
Author Author [facility] Organization [facility] Address Unknown Phone Unavailable Allergies Active Description [...] Status Pt. Type Provider Facility Loc./Unit Complaint [id number] 02/16/2013 11:39:00 2012 23:59:59 CLS Outpatient Wade Flores DO [facility]
== END 2017-04-06 22:00 | disposition home or self-care (01) ==
LOC: ED 20:30
DX: N39.0 Urinary tract infection, site not specified (principal)
CPT/HCPCS: 96372; 99283; J0696